=== PATIENT | female | born 1965 | race Caucasian/White ===

== ENCOUNTER 2018-05-29 16:06 | Emergency (ER) | payer SELFPAY ==
[~2018-05-29] VITALS: Ht 154.9 cm; Wt 91.4 kg
[2018-05-29 16:41] VITALS: BP 174/89; PULSE 98; RESP 18; Ht 154.9 cm; Wt 91.4 kg
== END 2018-05-29 22:14 | disposition left against medical advice (07) ==
LOC: FTE 16:06
DX: Z53.21 Procedure and treatment not carried out due to patient leaving prior to being seen by health care provider (principal)